=== PATIENT | female | born 2000 | race Two or more races ===

== ENCOUNTER 2024-02-12 13:08 | Outpatient (CLI) | payer OTHER | END 2024-02-12 13:10 | disposition home or self-care (01) | LOC: PRENATAL 13:08 | PROVIDERS: ATTEND Obstetrics & Gynecology Maternal & Fetal Medicine | DX: O36.80X0 Pregnancy with inconclusive fetal viability, not applicable or unspecified (principal); Z36.82 Encounter for antenatal screening for nuchal translucency ==

== ENCOUNTER 2024-03-23 08:05 | Outpatient (CLI) | payer OTHER | END 2024-03-23 08:08 | disposition home or self-care (01) | LOC: PRENATAL 08:05 | PROVIDERS: ATTEND Obstetrics & Gynecology Maternal & Fetal Medicine | DX: O35.9XX0 Maternal care for (suspected) fetal abnormality and damage, unspecified, not applicable or unspecified (principal); O35.3XX0 Maternal care for (suspected) damage to fetus from viral disease in mother, not applicable or unspecified; O44.02 Complete placenta previa NOS or without hemorrhage, second trimester; Z3A.19 19 weeks gestation of pregnancy ==

== ENCOUNTER 2024-03-24 19:18 | Emergency (ER) | payer OTHER ==
[~2024-03-24] VITALS: Ht 154.9 cm; Wt 54.9 kg
[2024-03-24 20:08] LABS: HEMATOCRIT 35.5 % (36.0-45.00); MEAN CELL VOLUME 83.4 fL (80.00-100.00); MEAN CORPUSCULAR HEMOGLOBIN 28.3 pg (27.00-32.0); MEAN CORPUSCULAR HGB CONC 33.9 g/dl (32.0-36.0); PLATELET COUNT 234 K/uL (150-450); RED BLOOD COUNT 4.25 M/uL (4.00-6.00); RED CELL DISTRIBUTION WIDTH 13.8 % (11.5-14.5)
[2024-03-24 20:40] LABS: ALBUMIN 3.3 gm/dL (3.4-5.0); BILIRUBIN TOTAL 0.29 mg/dL (0.3-1.2); CALCIUM 8.9 mg/dL (8.5-10.1); CREATININE SERUM 0.47 mg/dL (0.55-1.02); GFR 160.18; GLOBULINA 3.2 G/DL (2.4-3.5); POTASSIUM 3.62 mEq/L (3.5-5.1); TOTAL PROTEIN 6.5 gm/dL (6.4-8.2)
[2024-03-24 20:42] LABS: PH,URINE 6.5 (5.0-8.0); URINE APPEARANCE Clear; URINE BILIRRUBIN Negative (NEGATIVE); URINE BLOOD Negative; URINE COLOR Yellow; URINE GLUCOSE Negative (NEGATIVE); URINE KETONE 15 (NEGATIVE); URINE LEUKOCYTE Negative; URINE NITRATE Negative; URINE PROTEIN Negative (NEGATIVE); URINE UROBILINOGEN 0.2 E.U./dl
[2024-03-24 20:45] LABS: URINE BACTERIA 457.1 uL (0.0-1933); URINE EPITHELIAL CELLS 16.6 uL (0.0-38.8); URINE RBC 3.8 uL (0.0-20.8); URINE WBC 6.9 uL (0.0-23.2)
== END 2024-03-24 22:48 | disposition home or self-care (01) ==
LOC: ER 19:19
PROVIDERS: General Practice
DX: O26.899 Other specified pregnancy related conditions, unspecified trimester (principal); Z3A.19 19 weeks gestation of pregnancy; R10.2 Pelvic and perineal pain; Z88.6 Allergy status to analgesic agent

== ENCOUNTER 2024-05-20 18:29 | Outpatient (CLI) | payer OTHER ==
[~2024-05-20] VITALS: Ht 154.9 cm; Wt 59.4 kg
[2024-05-20 17:23] VITALS: BP 106/62
[2024-05-20] MEDS ORDERED: RINGERS SOLUTION,LACTATED 1,000 ML IV SCH (19:15)
[2024-05-20 19:23] VITALS: BP 106/62
[2024-05-20 20:18] LABS: URINE APPEARANCE Clear; URINE BILIRRUBIN Negative (NEGATIVE); URINE BLOOD Negative; URINE COLOR Yellow; URINE GLUCOSE Negative (NEGATIVE); URINE KETONE Negative (NEGATIVE); URINE LEUKOCYTE Trace; URINE NITRATE Negative; URINE PROTEIN Negative (NEGATIVE); URINE UROBILINOGEN 0.2 E.U./dl
[2024-05-20 20:20] LABS: URINE BACTERIA 1352.9 uL (0.0-1933); URINE EPITHELIAL CELLS 69.5 uL (0.0-38.8); URINE RBC 3.2 uL (0.0-20.8); URINE WBC 18.7 uL (0.0-23.2)
[2024-05-20 20:25] LABS: URINE CAST 0.45 uL (0.0-1.40)
[2024-05-20 20:27] VITALS: BP 101/61
[2024-05-20 20:42] LABS: HEMATOCRIT 31.7 % (36.0-45.00); HEMOGLOBIN 10.8 g/dL (12.0-15.00); MEAN CELL VOLUME 81.7 fL (80.00-100.00); MEAN CORPUSCULAR HEMOGLOBIN 27.7 pg (27.00-32.0); MEAN CORPUSCULAR HGB CONC 33.9 g/dl (32.0-36.0); PLATELET COUNT 212 K/uL (150-450); RED BLOOD COUNT 3.88 M/uL (4.00-6.00); RED CELL DISTRIBUTION WIDTH 14.2 % (11.5-14.5)
[2024-05-20 23:31] VITALS: BP 95/56
[2024-05-21 03:22] VITALS: BP 96/55
[2024-05-21 06:53] VITALS: BP 109/63; O2SAT 98
[2024-05-21 11:16] VITALS: BP 101/59
[2024-05-21 15:52] VITALS: BP 107/53
[2024-05-21 17:10] VITALS: BP 107/53
== END 2024-05-21 17:10 | disposition home or self-care (01) ==
LOC: OBS/DEL 18:29
PROVIDERS: Student in an Organized Health Care Education/Training Program; ATTEND Obstetrics & Gynecology
DX: O99.012 Anemia complicating pregnancy, second trimester (principal); O46.92 Antepartum hemorrhage, unspecified, second trimester; Z3A.26 26 weeks gestation of pregnancy; O26.849 Uterine size-date discrepancy, unspecified trimester; O36.8199 Decreased fetal movements, unspecified trimester, other fetus; O60.00 Preterm labor without delivery, unspecified trimester

== ENCOUNTER 2024-06-15 13:24 | Outpatient (CLI) | payer OTHER | END 2024-06-15 13:25 | disposition home or self-care (01) | LOC: PRENATAL 13:24 | PROVIDERS: ATTEND Obstetrics & Gynecology Maternal & Fetal Medicine | DX: O26.849 Uterine size-date discrepancy, unspecified trimester (principal); O36.8199 Decreased fetal movements, unspecified trimester, other fetus; O36.5990 Maternal care for other known or suspected poor fetal growth, unspecified trimester, not applicable or unspecified; Z3A.31 31 weeks gestation of pregnancy ==

== ENCOUNTER → 2024-07-08 13:46 | Outpatient (CLI) | payer OTHER | END | disposition home or self-care (01) | LOC: PRENATAL 13:46 | PROVIDERS: ATTEND Obstetrics & Gynecology Maternal & Fetal Medicine | DX: O26.849 Uterine size-date discrepancy, unspecified trimester (principal); O36.8199 Decreased fetal movements, unspecified trimester, other fetus; O36.5990 Maternal care for other known or suspected poor fetal growth, unspecified trimester, not applicable or unspecified; Z3A.33 33 weeks gestation of pregnancy ==

== ENCOUNTER 2024-07-23 13:17 | Outpatient (CLI) | payer OTHER | END 2024-07-23 13:20 | disposition home or self-care (01) | LOC: PRENATAL 13:17 | PROVIDERS: ATTEND Obstetrics & Gynecology Maternal & Fetal Medicine | DX: O26.849 Uterine size-date discrepancy, unspecified trimester (principal); O36.8199 Decreased fetal movements, unspecified trimester, other fetus; O36.5990 Maternal care for other known or suspected poor fetal growth, unspecified trimester, not applicable or unspecified; Z3A.34 34 weeks gestation of pregnancy ==

== ENCOUNTER 2024-07-26 10:45 | Inpatient (IN) | payer OTHER ==
[~2024-07-26] VITALS: Ht 154.9 cm; Wt 65.8 kg
[2024-07-26 11:48] LABS: PH,URINE 6.5 (5.0-8.0); URINE APPEARANCE Cloudy; URINE BILIRRUBIN Negative (NEGATIVE); URINE BLOOD Negative; URINE COLOR Yellow; URINE GLUCOSE Negative (NEGATIVE); URINE KETONE Negative (NEGATIVE); URINE LEUKOCYTE Small; URINE NITRATE Negative; URINE PROTEIN Negative (NEGATIVE); URINE UROBILINOGEN 0.2 E.U./dl
[2024-07-26 11:49] LABS: URINE BACTERIA 6899.2 uL (0.0-1933); URINE EPITHELIAL CELLS 81.2 uL (0.0-38.8)
[2024-07-26 11:52] LABS: HEMATOCRIT 38.1 % (36.0-45.00); MEAN CELL VOLUME 81.1 fL (80.00-100.00); MEAN CORPUSCULAR HEMOGLOBIN 27.7 pg (27.00-32.0); MEAN CORPUSCULAR HGB CONC 34.1 g/dl (32.0-36.0); PLATELET COUNT 268 K/uL (150-450); RED CELL DISTRIBUTION WIDTH 14.5 % (11.5-14.5)
[2024-07-26 12:09] LABS: INR 0.94; PARTIAL THROMBOPLASTIN TIME 25.1 SECONDS (22.0-34.0); PROTHROMBIN TIME 10.3 SECONDS (9.0-11.5)
[2024-07-26 13:10] LABS: BILIRUBIN TOTAL 0.39 mg/dL (0.3-1.2); CALCIUM 9.2 mg/dL (8.5-10.1); CREATININE SERUM 0.56 mg/dL (0.55-1.02); GFR 130.86; GLOBULINA 3.8 G/DL (2.4-3.5); POTASSIUM 3.86 mEq/L (3.5-5.1); TOTAL PROTEIN 6.8 gm/dL (6.4-8.2)
[2024-08-10 11:33] VITALS: BP 113/79
[2024-08-10] MEDS ORDERED: PRENATAL TABLE1 EAC1 PO (12:11)
[2024-08-10] MEDS ORDERED: RINGERS SOLUTION,LACTATED 1,000 ML IV SCH (12:15)
[2024-08-10] MEDS ORDERED: MISOPROSTOL 25 MCG/4 ML GEL.W.APPL ONE ×2 (13:20→18:23)
[2024-08-10] MEDS ORDERED: MISOPROSTOL 25 MCG/4 ML GEL.W.APPL VAG ONE ×2 (13:30→18:15)
[2024-08-10 15:14] VITALS: BP 115/60
[2024-08-10 20:12] VITALS: BP 125/65
[2024-08-10 23:42] VITALS: BP 131/63
[2024-08-11] VITALS (9 sets, daily range): BP systolic 112–121; BP diastolic 59–74
[2024-08-11] MEDS ORDERED: OXYTOCIN 20 UNITS/500ML RL PIGGYBAG IV ONE (08:09)
[2024-08-11] MEDS ORDERED: OXYTOCIN 500 ML IV SCH (08:15)
[2024-08-11] MEDS ORDERED: LIDOCAINE HCL 1% 10ML VIAL ONE (12:36)
[2024-08-11] MEDS ORDERED: CHLORHEXIDINE GLUCONATE 120 ML BOTTLE TOP ONE ×2 (12:36→14:30)
[2024-08-11] MEDS ORDERED: OXYTOCIN 20 UNITS/1000ML RL PIGGYBAG IV ONE (12:36)
[2024-08-11] MEDS ORDERED: ERYTHROMYCIN BASE OPHT 1GM EACH TUBE OP ONE ×2 (12:36→14:30)
[2024-08-11] MEDS ORDERED: ACETAMINOPHEN 500 MG GEL..CAP PO PRN (13:45)
[2024-08-11] MEDS ORDERED: OXYTOCIN 1,000 ML IV SCH (13:45)
[2024-08-11] MEDS ORDERED: LIDOCAINE HCL 1% 10ML VIAL IJ ONE (14:30)
[2024-08-11 20:23] LABS: HEMATOCRIT 37.4 % (36.0-45.00); HEMOGLOBIN 12.5 g/dL (12.0-15.00); MEAN CORPUSCULAR HEMOGLOBIN 27.4 pg (27.00-32.0); MEAN CORPUSCULAR HGB CONC 33.3 g/dl (32.0-36.0); PLATELET COUNT 229 K/uL (150-450); RED BLOOD COUNT 4.56 M/uL (4.00-6.00); RED CELL DISTRIBUTION WIDTH 14.3 % (11.5-14.5)
[2024-08-12 00:40] VITALS: BP 102/65
[2024-08-12 08:24] VITALS: BP 107/73
[2024-08-12] MEDS ORDERED: PNV,CALCIUM 72/IRON/FOLIC ACID 1 TAB TABLET PO SCH (09:00)
[2024-08-12 16:00] VITALS: BP 97/65
[2024-08-12] MEDS ORDERED: DOCUSATE SODIUM 100MG CAP PO SCH (17:00)
[2024-08-12 21:22] VITALS: BP 114/71
[2024-08-13] VITALS: BP 101/65
[2024-08-13 15:51] VITALS: BP 109/72
== END 2024-08-13 17:09 | disposition home or self-care (01) | DRG 807 ==
LOC: OB/GYN 08-10 10:45 → LDR 08-10 10:57 → OB/GYN 08-11 14:32
PROVIDERS: ADMIT Student in an Organized Health Care Education/Training Program; ATTEND Student in an Organized Health Care Education/Training Program
PROC: 3E0P7VZ Introduction of Hormone into Female Reproductive, Via Natural or Artificial Opening (ICD-10-PCS; 2024-08-10)
PROC: 4A1HXCZ Monitoring of Products of Conception, Cardiac Rate, External Approach (ICD-10-PCS; 2024-08-10)
PROC: 10E0XZZ Delivery of Products of Conception, External Approach (ICD-10-PCS; principal; 2024-08-11)
PROC: 0KQM0ZZ Repair Perineum Muscle, Open Approach (ICD-10-PCS; 2024-08-11)
PROC: 3E033VJ Introduction of Other Hormone into Peripheral Vein, Percutaneous Approach (ICD-10-PCS; 2024-08-11)
DX: O70.1 Second degree perineal laceration during delivery (principal); O36.5930 Maternal care for other known or suspected poor fetal growth, third trimester, not applicable or unspecified; Z37.0 Single live birth; Z3A.39 39 weeks gestation of pregnancy; Z20.822 Contact with and (suspected) exposure to COVID-19

== ENCOUNTER → 2024-08-02 | Outpatient (CLI) | payer OTHER ==
[~2024-08-02] MED LIST: PRENATAL TABLE1 EAC1 PO
== END | disposition home or self-care (01) ==
LOC: NST 13:04
PROVIDERS: ATTEND Obstetrics & Gynecology
DX: Z34.83 Encounter for supervision of other normal pregnancy, third trimester (principal)